=== PATIENT | female | born 1970 | race Caucasian/White ===

== ENCOUNTER 2025-08-11 08:42 | Emergency (ER) | payer MEDICAID ==
[~2025-08-11] VITALS: Ht 157.5 cm; Wt 50.0 kg
[2025-08-11 08:55] VITALS: O2SAT 98
[2025-08-11 09:36] LABS: BASOPHILS % 1.0 % (0.0-2.0); EOSINOPHILS % 1.6 % (0.0-5.0); HEMATOCRIT. 39.2 % (36.0-48.0); HEMOGLOBIN. 13.1 g/dL (12.0-16.0); LYMPHOCYTES % 35.5 % (20.0-50.0); MEAN PLATELET VOLUME 8.4 fl (7.4-10.4); MONOCYTES % 5.5 % (2.0-8.0); NEUTROPHILS % 56.4 % (40.0-76.0); PLATELET 280 x1000/uL (130-400); RED BLOOD CELL COUNT 4.25 mill/uL (4.2-5.4); RED CELL DISTRIBUTION WIDTH 13.3 % (11.6-14.6)
[2025-08-11 09:53] LABS: CREATININE 0.9 mg/dL (0.6-1.0); UREA NITROGEN BLOOD 14 mg/dL (9-23)
[2025-08-11 09:54] LABS: CLARITY URINE CLEAR (CLEAR); COLOR URINE YELLOW (YELLOW); GLUCOSE URINE NEGATIVE (NEGATIVE); KETONES URINE NEGATIVE (NEGATIVE); LEUKOCYTE ESTERASE URINE NEGATIVE (NEGATIVE); NITRITE URINE NEGATIVE (NEGATIVE); OCCULT BLOOD URINE NEGATIVE (NEGATIVE); PH URINE 7.5 (4.5-8.0); PROTEIN URINE NEGATIVE (NEGATIVE); SPECIFIC GRAVITY URINE 1.006 (1.005-1.030); UROBILINOGEN URINE 0.2 E.U./dL (0.2-1.0)
[2025-08-11 10:01] LABS: HCG SCREEN NEGATIVE
[2025-08-11 10:19] LABS: B-HCG QUANTITATIVE < 1 mIU/mL (<6)
[2025-08-11 12:22] VITALS: BP 115/74; PULSE 68; RESP 18; TEMP 36.9; O2SAT 98
== END 2025-08-11 12:30 | disposition home or self-care (01) ==
LOC: ER 08:42
DX: N95.0 Postmenopausal bleeding (principal); R10.20 Pelvic and perineal pain unspecified side; Z88.0 Allergy status to penicillin
CPT/HCPCS: 36415; 76830; 76856; 80048; 81003; 81025; 84702; 84703; 85025; 86850; 86900; 99284